=== PATIENT | female | born 1970 | race Caucasian/White ===

== ENCOUNTER 2017-06-23 04:12 | Emergency (ER) | payer MEDICARE, OTHER ==
[~2017-06-23 04:12] MED LIST: ASPI1TAB7 PO; FLUO10TA PO; HYDR-755 PO; LEVO50TA51 PO; PRIL40CA PO; SIMV20 PO
[2017-06-23 04:27] VITALS: BP 126/90; PULSE 86; RESP 18; TEMP 98.5
[2017-06-23] MEDS ORDERED: SYNT25TA PO (04:41)
[2017-06-23] MEDS ORDERED: SIMV20TA PO (04:41)
--- NOTE | 2017-06-23 05:09 | PD ---
HPI Chief Complaint: Alcohol/Drug Intoxication Time Seen by Provider: 04:30 Travel History International Travel<30 days: No Contact w/Intl Traveler<30days: No Traveled to known affect area: No History of Present Illness HPI Patient is a 47-year-old female presenting to the emergency Department under a Jonatan's act. Patient reports drinking 3 natural ices this evening. According to the report [place] Patient denies any complaints at this time, she is not entirely forthcoming with her health history. Patient states that she did have a stroke a few years ago. PFSH Past Medical History Cerebrovascular Accident: Yes Diminished Hearing: No Musculoskeletal: Yes (COLLAPSED LUNG AND BROKEN RIBS) Thyroid Disease: Yes (GRAVE'S DISEASE) ?: Not : 7 Para: 6 Miscarriage: 1 Past Surgical History Neurologic Surgery: Yes (ASTROCYTOMA BENIGN CEREBELLUM 1984) Other Surgery: Yes (HERNIA REPAIR ) Social History Alcohol Use: Yes Tobacco Use: Yes (1PK X 20 YRS ) Substance Use: Yes (crack cocaine alcohol) Allergies-Medications (Allergen,Severity, Reaction): Coded Allergies: amoxicillin (Unverified Allergy, Severe, 06/23/17) cephalexin (Unverified Allergy, Severe, 06/23/17) Reported Meds & Prescriptions Reported Meds & Active Scripts Active Reported Synthroid (Levothyroxine Sodium) 25 Mcg Tab 25 Mcg PO DAILY Simvastatin 20 Mg Tab 20 Mg PO DAILY Review of Systems ROS Limitations: Intoxication Except as stated in HPI: all other systems reviewed are Neg Physical Exam Exam Limitations: Intoxication Narrative GENERAL: Well-developed, well-nourished, alert, intoxicated-appearing female. SKIN: Warm and dry. HEAD: Atraumatic. Normocephalic. EYES: Pupils equal and round. No scleral icterus. No injection or drainage. ENT: No nasal bleeding or discharge. Mucous membranes pink and moist. NECK: Trachea midline. No JVD. CARDIOVASCULAR: Regular rate and rhythm. RESPIRATORY: No accessory muscle use. Clear to auscultation. Breath sounds equal bilaterally. GASTROINTESTINAL: Abdomen soft, non-tender, nondistended. Hepatic and splenic margins not palpable. MUSCULOSKELETAL: Extremities without clubbing, cyanosis, or edema. No obvious deformities. NEUROLOGICAL: Awake and alert. No obvious cranial nerve deficits. Motor grossly within normal limits. Five out of 5 muscle strength in the arms and legs. Normal speech. PSYCHIATRIC: Appropriate mood and affect; insight and judgment normal. Data Data Last Documented VS Vital Signs Date Time Temp Pulse Resp B/P (MAP) Pulse Ox O2 Delivery O2 Flow Rate FiO2 06/23/17 04:27 98.5 86 18 126/90 (102) Orders Orders Alcohol (Ethanol) (06/23/17 04:29) Labs Laboratory Tests Test 06/23/17 04:30 Ethyl Alcohol Level 170 MG/DL MDM Medical Decision Making Medical Screen Exam Complete: Yes Emergency Medical Condition: Yes Interpretation(s) Vital Signs Date Time Temp Pulse Resp B/P (MAP) Pulse Ox O2 Delivery O2 Flow Rate FiO2 06/23/17 04:27 98.5 86 18 126/90 (102) Differential Diagnosis Acute intoxication versus substance abuse versus other Narrative Course Patient is a 47-year-old female presenting under a [employer] activity due to public intoxication. Patient's vital signs are stable. Alcohol level ordered and pending. Patient's blood alcohol level is 170. Patient will be kept in the emergency department until she is clinically sober and demonstrates safe ambulation and decision-making skills. Patient will then be discharged. Diagnosis Primary Impression: Alcohol intoxication Qualified Codes: F10.920 - Alcohol use, unspecified with intoxication, uncomplicated Referrals: [facility] (Out patient) Primary Care Physician Patient Instructions: Abuse of Alcohol (ED), Alcohol Intoxication (ED), General Instructions Additional Instructions: Avoid excessive intake of alcohol Drink more water Follow-up with her primary doctor Return to emergency department for any new or worsening symptoms Med/Other Pt SpecificInfo: No Change to Meds Disposition: 01 DISCHARGE HOME Condition: Stable Elsy Leavitt Jun 23, 2017 05:09
[2017-06-23 08:00] VITALS: BP 121/76; PULSE 73; RESP 18; O2SAT 100
== END 2017-06-23 09:04 | disposition home or self-care (01) ==
LOC: NEPD 04:12
DX: F10.920 Alcohol use, unspecified with intoxication, uncomplicated (principal); Z86.73 Personal history of transient ischemic attack (TIA), and cerebral infarction without residual deficits; Z72.0 Tobacco use
CPT/HCPCS: 80307; 99283